=== PATIENT | male | born 1945 | race Caucasian/White ===

== ENCOUNTER 2017-08-25 07:22 | Day surgery (SDC) | payer OTHER ==
[~2017-08-25] VITALS: Ht 172.7 cm; Wt 119.8 kg
[~2017-08-25 07:22] MED LIST: ALEVE220 MG PO; BACL20 PO; CO Q10100 MG PO; Curcumin1 GM PO; DOXA4 PO; Excedrin Extra1 EACH PO; LUTEIN40 MG PO; MELA3 PO
== END 2017-08-25 12:30 | disposition home or self-care (01) ==
LOC: ORSCMMR 07:22 → ORD 08:45 → ORSCMMR 12:30
PROVIDERS: Surgery
PROC: 0JB50ZX Excision of Left Neck Subcutaneous Tissue and Fascia, Open Approach, Diagnostic (ICD-10-PCS; principal; 2017-08-25 08:45)
DX: L72.3 Sebaceous cyst (principal); E11.9 Type 2 diabetes mellitus without complications; J44.9 Chronic obstructive pulmonary disease, unspecified; F17.210 Nicotine dependence, cigarettes, uncomplicated; E66.01 Morbid (severe) obesity due to excess calories; Z68.41 Body mass index [BMI] 40.0-44.9, adult; Z79.899 Other long term (current) drug therapy
CPT/HCPCS: 82947; 88304; J0690; J2250; J3010; J7120

== ENCOUNTER 2018-04-14 10:43 | Inpatient (IN) | payer OTHER ==
[~2018-04-14 10:43] MED LIST changes: +ACET325 PO; +ATOR20 PO; +Coq-10100 MG PO; +ERGO400 PO; +GARCINIA CAMBO1 EACH PO; +IBUP800 PO; +NAPR220 PO; +VARE1 PO
--- NOTE | 2018-04-18 06:47 | NUR ---
History, Chart, Medications and Allergies reviewed before start of procedure. Patient confirms NPO status and agrees with scheduled surgery. Patient reports completing Chlorhexadine shower X4 prior to admission to hospital.
[2018-04-18] MEDS ORDERED: MUPI1NAS (06:51)
--- NOTE | 2018-04-18 07:28 | NUR ---
PATIENT DECLINES WARMING GOWN/BLANKET.
--- NOTE | 2018-04-18 11:34 | NUR ---
FENTANYL 100MCG NOT CROSSING OVER TO EMAR SEE PAPER MAR
--- NOTE | 2018-04-18 16:39 | NUR ---
04/18/18 1639 Natalia Coronado VERIFICATIONS: EDIT CHART.
--- NOTE | 2018-04-18 17:31 | NUR ---
PT HAS BEEN STABLE POST. PT HAS BEEN UP TO WALK THE HALLWAYS WITH THERAPY AND SIT IN CHAIR. PT 1 ASSIST OOB AND TO BATHROOM. PAIN CONTROLLED WITH SCHEDULED AND PRN MEDS. CONT IV FLUIDS ORDERED, MAY SL WHEN LUCAS PO. PT WILL HAVE REG DIET FOR DINNER. PT VOIDING USING THE URINAL. PT DRESSING CDI. PAS, TEDS AND POLAR PACK IN PLACE. CIRC AND SENSATION WNL. HOME CPAP ORDERED AND PT PLACED ON CONT BIOX PER PROTOCOL. PT USES CALL LIGHT APPROPRIATELY TOLERATED.
[2018-04-19 06:04] LABS: BASOPHILS ABSOLUTE AUTO 0.03 K/mm3 (0.00-0.23); BASOPHILS PERCENT AUTO 0 % (0-2); EOSINOPHILS PERCENT AUTO 0 % (0-6); Hemoglobin 11.2 g/dL (13.5-17.5); IMMATURE GRAN ABSOLUTE AUTO 0.11 K/mm3 (0.00-0.10); IMMATURE GRAN PERCENT AUTO 1 % (0-1); LYMPHOCYTES ABSOLUTE AUTO 1.41 K/mm3 (0.84-5.20); LYMPHOCYTES PERCENT AUTO 10 % (21-46); MONOCYTES ABSOLUTE AUTO 1.15 K/mm3 (0.16-1.47); MONOCYTES PERCENT AUTO 8 % (4-13); Mean Corpuscular HGB 30.5 pg (26.0-34.0); Mean Corpuscular HGB Conc 32.9 g/dL (31.5-36.5); Mean Corpuscular Volume 93 fL (80-100); Mean Platelet Volume 9.8 fL (9.1-12.4); NEUTROPHILS ABSOLUTE AUTO 12.03 K/mm3 (1.96-9.15); NEUTROPHILS PERCENT AUTO 82 % (41-73); Platelet Count 172 K/mm3 (150-400); RDW Coefficient Variation 13.8 % (11.7-14.2); RDW Standard Deviation 46.8 fL (35.1-46.3); Red Blood Cell Count 3.67 M/mm3 (4.30-5.90); White Blood Cell Count 14.73 K/mm3 (4.00-11.30)
[2018-04-19 06:16] LABS: Anion Gap 8 mmol/L (6-16); Blood Urea Nitrogen 17 mg/dL (8-24); Bun/Creatinine Ratio 19.7 (12.0-20.0); CO2, Blood 26 mmol/L (21-32); Calcium, Blood 8.1 mg/dL (8.5-10.1); Chloride, Blood 103 mmol/L (98-108); Creatinine, Blood 0.86 mg/dL (0.60-1.20); Glomerular Filtration Rate >60 (60-); Glucose, Blood 137 mg/dL (70-99); Potassium, Blood 4.1 mmol/L (3.5-5.5); Sodium, Blood 137 mmol/L (136-145)
--- NOTE | 2018-04-19 06:36 | NUR ---
SUMMARY POD#1 RIGHT KEE NO ACUTE CHANGES FROM ASSESSMENT. TOLERATING PO INTAKE. PAIN MANAGED WITH SCHEDULED TYLENOL/TORADOL. 1 ASSIST USING FWW/GAIT BELT. VOIDING WNL. CALL LIGHT IN REACH
--- NOTE | 2018-04-19 09:41 | NUR ---
hard rx for percocet and aspiring given to patients
[2018-04-19] MEDS ORDERED: ASPI325EC PO (11:38)
[2018-04-19] MEDS ORDERED: Percocet 5-3251 EACH PO (11:41)
--- NOTE | 2018-04-19 12:11 | NUR ---
DISCHARGE PT PROVIDED WITH WRITTEN AND VERBAL DISCHARGE INSTRUCTIONS, PRESCRIPTIONS, AND DRESSINGS. PT AND SPOUSE REPORTED UNDERSTANDING INSTRUCTIONS AFTER QUESTIONS WERE ANSWERED. VSS. WILL MONITOR UNTIL REPORT TO ONCOMING RN.
== END 2018-04-19 12:08 | disposition home or self-care (01) | DRG 470 ==
LOC: SURS 04-18 06:04 → PRE IP 04-18 07:30 → SURS 04-18 11:56
PROVIDERS: ADMIT Orthopaedic Surgery
PROC: 0SR903A Replacement of Right Hip Joint with Ceramic Synthetic Substitute, Uncemented, Open Approach (ICD-10-PCS; principal; 2018-04-18 07:30)
DX: M16.11 Unilateral primary osteoarthritis, right hip (principal); Z68.41 Body mass index [BMI] 40.0-44.9, adult; E11.9 Type 2 diabetes mellitus without complications; J44.9 Chronic obstructive pulmonary disease, unspecified; G47.33 Obstructive sleep apnea (adult) (pediatric); I10 Essential (primary) hypertension; E66.9 Obesity, unspecified; Z89.022 Acquired absence of left finger(s); Z91.040 Latex allergy status; Z88.8 Allergy status to other drugs, medicaments and biological substances; Z87.891 Personal history of nicotine dependence
CPT/HCPCS: 36415; 72170; 80048; 82947; 85025; 86850; 86900; 86901; 88300; 97110; 97116; 97162; 97530; C1776; J0171; J0690; J0735; J1100; J1170; J1885; J2250; J2405; J2795; J3010; J7120

== ENCOUNTER 2019-02-22 09:19 | Day surgery (SDC) | payer OTHER ==
[~2019-02-22] VITALS: Ht 172.7 cm; Wt 121.8 kg
[~2019-02-22 09:19] MED LIST changes: +ASPI325EC PO; +ATORVASTATIN CA20 MG PO; +Flonase 0.05% N16 GM; +MUPI1NAS; +PROBIOTIC1 EAC1; +Percocet 5-3251 EACH PO; +UBID100 PO; +Vitamin D2000 UNIT
--- NOTE | 2019-02-22 10:28 | NUR ---
02/22/19 1028 Kecia Manuel PT. C/O MULTANI. PT. TOOK BACLOFEN & ALEVE THIS AM AT 0600. LIGHTS TURNED OFF IN PT.'S ROOM R/T HIS MULTANI. CALL LIGHT IS WITHIN REACH.
--- NOTE | 2019-02-22 12:31 | NUR ---
02/22/19 1231 Kecia Manuel 2ML NACL FOR POLYP REMOVAL. THEN USED INDIGO &NACL 18ML FOR OTHER POLYP REMOVAL.
--- NOTE | 2019-02-22 13:00 | NUR ---
02/22/19 1300 Susy Palafox PT VOIDED 200CC'S CLEAR YELLOW URINE IN URINAL AT END OF PROCEDURE. UP TO BATHROOM IN RECOVERY TO VOID AGAIN IN TOILET.
== END 2019-02-22 13:00 | disposition home or self-care (01) ==
LOC: ORSCSDS 09:19
DX: Z12.11 Encounter for screening for malignant neoplasm of colon (principal); Z86.010 Personal history of colon polyps; D12.0 Benign neoplasm of cecum; D12.2 Benign neoplasm of ascending colon; D12.3 Benign neoplasm of transverse colon; D12.5 Benign neoplasm of sigmoid colon; K57.30 Diverticulosis of large intestine without perforation or abscess without bleeding; K64.8 Other hemorrhoids; E11.9 Type 2 diabetes mellitus without complications; J44.9 Chronic obstructive pulmonary disease, unspecified; G47.33 Obstructive sleep apnea (adult) (pediatric); E66.01 Morbid (severe) obesity due to excess calories; Z68.41 Body mass index [BMI] 40.0-44.9, adult; Z79.899 Other long term (current) drug therapy
CPT/HCPCS: 82947; 88305; J0360; J2704; J7120

== ENCOUNTER 2019-04-08 18:43 | Inpatient (IN) | payer MEDICARE, OTHER ==
[~2019-04-08] VITALS: Ht 185.4 cm; Wt 123.4 kg
[~2019-04-08 18:43] MED LIST changes: -ATORVASTATIN CA20 MG PO; -Flonase 0.05% N16 GM
[2019-04-08 19:02] LABS: BASOPHILS ABSOLUTE AUTO 0.03 K/mm3 (0.00-0.23); BASOPHILS PERCENT AUTO 0 % (0-2); EOSINOPHILS PERCENT AUTO 3 % (0-6); Hematocrit 45.2 % (37.0-53.0); Hemoglobin 14.7 g/dL (13.5-17.5); IMMATURE GRAN ABSOLUTE AUTO 0.02 K/mm3 (0.00-0.10); IMMATURE GRAN PERCENT AUTO 0 % (0-1); LYMPHOCYTES ABSOLUTE AUTO 1.59 K/mm3 (0.84-5.20); LYMPHOCYTES PERCENT AUTO 22 % (21-46); MONOCYTES ABSOLUTE AUTO 0.97 K/mm3 (0.16-1.47); MONOCYTES PERCENT AUTO 14 % (4-13); Mean Corpuscular HGB 29.9 pg (26.0-34.0); Mean Corpuscular HGB Conc 32.5 g/dL (31.5-36.5); Mean Corpuscular Volume 92 fL (80-100); Mean Platelet Volume 9.8 fL (9.1-12.4); NEUTROPHILS ABSOLUTE AUTO 4.36 K/mm3 (1.96-9.15); NEUTROPHILS PERCENT AUTO 61 % (41-73); Platelet Count 192 K/mm3 (150-400); RDW Coefficient Variation 13.2 % (11.7-14.2); RDW Standard Deviation 45.1 fL (35.1-46.3); Red Blood Cell Count 4.92 M/mm3 (4.30-5.90); White Blood Cell Count 7.17 K/mm3 (4.00-11.30)
[2019-04-08 19:22] LABS: Alanine Aminotransfer (ALT/SGP 26 U/L (12-78); Albumin/Globulin Ratio 1.2 (0.8-1.8); Alk Phos 102 U/L (50-136); Anion Gap 6 mmol/L (6-16); Aspartate Aminotrans (AST/SGOT 21 U/L (12-37); Bilirubin, Total 0.3 mg/dL (0.1-1.0); Blood Urea Nitrogen 16 mg/dL (8-24); Bun/Creatinine Ratio 17.4 (12.0-20.0); CO2, Blood 26 mmol/L (21-32); Calcium, Blood 8.6 mg/dL (8.5-10.1); Chloride, Blood 107 mmol/L (98-108); Creatinine, Blood 0.92 mg/dL (0.60-1.20); Globulin, Blood 3.4 g/dL (2.2-4.0); Glomerular Filtration Rate >60 (60-); Glucose, Blood 144 mg/dL (70-99); Potassium, Blood 3.7 mmol/L (3.5-5.5); Sodium, Blood 139 mmol/L (136-145); Total Protein, Blood 7.4 g/dL (6.4-8.2); Troponin I 0.026 ng/mL (0.000-0.040)
[2019-04-08] MEDS ORDERED: BACL20 PO (20:09)
[2019-04-08] MEDS ORDERED: Flonase 0.05% N16 GM (20:09)
[2019-04-08] MEDS ORDERED: ALEVE220 MG PO (20:09)
[2019-04-08] MEDS ORDERED: ATORVASTATIN CA20 MG PO (20:10)
[2019-04-08] MEDS ORDERED: MED FOR PROSTATE PO (20:12)
[2019-04-09 03:36] LABS: BASOPHILS ABSOLUTE AUTO 0.04 K/mm3 (0.00-0.23); BASOPHILS PERCENT AUTO 1 % (0-2); EOSINOPHILS ABSOLUTE AUTO 0.16 K/mm3 (0.00-0.68); EOSINOPHILS PERCENT AUTO 2 % (0-6); Hematocrit 42.8 % (37.0-53.0); Hemoglobin 13.5 g/dL (13.5-17.5); IMMATURE GRAN ABSOLUTE AUTO 0.02 K/mm3 (0.00-0.10); IMMATURE GRAN PERCENT AUTO 0 % (0-1); LYMPHOCYTES ABSOLUTE AUTO 1.73 K/mm3 (0.84-5.20); LYMPHOCYTES PERCENT AUTO 24 % (21-46); MONOCYTES ABSOLUTE AUTO 0.94 K/mm3 (0.16-1.47); MONOCYTES PERCENT AUTO 13 % (4-13); Mean Corpuscular HGB 29.1 pg (26.0-34.0); Mean Corpuscular HGB Conc 31.5 g/dL (31.5-36.5); Mean Corpuscular Volume 92 fL (80-100); NEUTROPHILS ABSOLUTE AUTO 4.44 K/mm3 (1.96-9.15); NEUTROPHILS PERCENT AUTO 61 % (41-73); Platelet Count 190 K/mm3 (150-400); RDW Coefficient Variation 13.5 % (11.7-14.2); RDW Standard Deviation 45.8 fL (35.1-46.3); Red Blood Cell Count 4.64 M/mm3 (4.30-5.90); White Blood Cell Count 7.33 K/mm3 (4.00-11.30)
[2019-04-09 03:57] LABS: Anion Gap 5 mmol/L (6-16); Blood Urea Nitrogen 15 mg/dL (8-24); Bun/Creatinine Ratio 17.8 (12.0-20.0); CHOL/HDL RATIO 3.3; CO2, Blood 27 mmol/L (21-32); Calcium, Blood 8.6 mg/dL (8.5-10.1); Chloride, Blood 109 mmol/L (98-108); Cholesterol 124 mg/dL (50-200); Creatinine, Blood 0.84 mg/dL (0.60-1.20); Glomerular Filtration Rate >60 (60-); Glucose, Blood 115 mg/dL (70-99); HDL Cholesterol 38 mg/dL (>39); LDL/HDL RATIO 1.6; Low Density Lipoprotein Chol 61 mg/dL (0-110); Potassium, Blood 3.8 mmol/L (3.5-5.5); Sodium, Blood 141 mmol/L (136-145); Triglycerides 123 mg/dL (30-160); Very Low Density Lipoprot Chol 24 mg/dL (6-32)
--- NOTE | 2019-04-09 07:00 | NUR ---
ASSUMED CARE OF PT- BEDSIDE REPORT COMPLETED WITH NIGHT RN TARA. PT HEPARIN DRIP CURRENTLY RUNNING RATE VERIFIED WITH PHARMACY AT SHIFT CHANGE. PT ALERT AND ORIENTED. PT CURRENTLY WEARING THE C-PAP PROVIDED BY THE HOSPITAL BUT PT IS ALLERGIC TO PETROLATUM AND LATEX. SO HIS SPOUSE IS BRINGING HIS CPAP IN FOR HIM WITH A SPECIAL MASK. PT MOVES INDEPENDENT IN THE ROOM. IN REPORT PATIENT SERVICE REPRESENTATIVE ON THE CASE SEEMED TO BE UNCLEAR. PT HAS A STRESS TEST ORDERED FOR TODAY, WILL CALL TO COMNFIRM THAT DR STILL WANTS THIS. TROPONIN WAS CRITICAL AT GREATER THAN 1.5. NIGHT DR AWARE, NO NEW ORDERS PER NIGHT RN AT THIS TIME. WILL FOLLOW UP WITH DAY SHIFT HOSPITALIST.
--- NOTE | 2019-04-09 08:31 | NUR ---
HEALTH BENEFITS SPECIALIST SUMMARY patient alert oriented X4, No complaints of discomfort overnight. nebulizer tx have made patient "feel much much better" Patient stated he thought he was going to the night before. lung sounds have exp. wheezes throughout, but audible air excursion in all lobes. INR this morning was 5.3. Hospitalist informed and Pharmacy to hold coumadin today. Pharmacist informed of INR. They are managing Coumadin dosage.
--- NOTE | 2019-04-09 09:33 | NUR ---
CALLED CARDIOLOGY CONSULT TO DR ROSA. PER THE DAYS HAVE SWITCHED AND DR ROY IS NOW THE AUTOMOTIVE DESIGN DRAFTER GRADUATE ASSISTANT ATHLETIC TRAINER FOR THE DAY. PAGED DR ROY WAITING FOR A CALL BACK.
--- NOTE | 2019-04-09 15:22 | NUR ---
PT ARRIVED TO ROOM PCU 11. FAMILY PRESENT. PT UP TO BR UPON ARRIVAL. UNMEASURED VOID
--- NOTE | 2019-04-09 16:00 | NUR ---
FAMILY LEFT TO LET PT REST. EXTRA PILLOWS PROVIDED. POSITIONED ONTO LEFT SIDE. LIGHTS OFF ADDITIONAL VISITORS ARRIVED AND NOW LEAVING. ARM SLING IN PLACE, CONT BIOX ON, CALL LIGHT IN REACH.
--- NOTE | 2019-04-09 18:02 | NUR ---
SHIFT SUMMARY PT CURRENTLY LAYING DOWN WITH CPAP IN PLACE AND LIGHTS OFF. FINISHED ALL OF DINNER WISHING TO GET SOME REST BEFORE SHIFT CHANGE AND FOR WHEN SHE COMES BACK TO VISIT. PT HAS HAD NO SIG CHANGES SINCE ARRIVAL FROM PICKLING OPERATOR. HR IN 40'S-50'S WHEN ASLEEP, LOW 60'S WHEN AWAKE. DISCUSSED WITH CLINICAL PSYCHOLOGIST LICENSED, MONITOR SHOWS NO CHANGES WILL CONTINUE TO WATCH. CALL LIGHT AND PHONE WITHIN REACH. WILL REPORT TO POULTRY EVISCERATOR RN.
--- NOTE | 2019-04-10 06:17 | NUR ---
SHIFT SUMMARY PT SLEEPING IN ROOM COMFORTABLY AT THIS TIME. NO ACUTE CHANGES T/O NIGHT. PT SLEPT WELL T/O NIGHT. STARTED DEFLATING TR BAND TO R WRIST AT 191, SITE WAS WNL NO OOZING NOTED NO HEMATOMA. SITE WAS FULLY DEFLATED AT REMOVED BY 0100. ARM BOARD IN PLACE AND TEGADERM OVER SITE. PT DENIED CP OR SOB T/O NIGHT. DENIED OTHER NEEDS. CALL LIGHT IS WITHIN REACH.
--- NOTE | 2019-04-10 07:48 | NUR ---
REPORT REC'D FROM ERICK DIAS. PT LYING IN BED, LIGHTS OFF, CPAP ON, CONT BIOX IN PLACE. VSS. DENIES NEEDS AT THIS TIME. CALL LIGHT IN REACH. ASSESSMENT NOTED.
[2019-04-10] MEDS ORDERED: Cardura1 MG PO (12:15)
[2019-04-10] MEDS ORDERED: Aspir 8181 MG PO (14:47)
[2019-04-10] MEDS ORDERED: CLOP75 PO (14:49)
[2019-04-10] MEDS ORDERED: METO25 PO (15:00)
[2019-04-10] MEDS ORDERED: Nicoderm Cq1 EAC1 TOP (15:04)
[2019-04-10] MEDS ORDERED: NITR.4SL SL (15:05)
--- NOTE | 2019-04-10 15:10 | NUR ---
PT DC'D WITH WRITTEN AND VERBAL INSTRUCTIONS. ALL QUESTIONS ANSERED. IV DC'D INTACT. WRIST BOARD IN PLACE, RADIAL SITE DRSG INTACT. PT SSCORTED TO PV WITH SPOUSE BY SOAKER SODA WORKER. VSS. ROCHA.
== END 2019-04-10 15:31 | disposition home or self-care (01) | DRG 247 ==
LOC: ER 18:43 → MEDS 18:44 → PCU 04-09 14:59
PROVIDERS: Nurse Practitioner Acute Care; Physician Assistant; ADMIT Internal Medicine
PROC: 027034Z Dilation of Coronary Artery, One Artery with Drug-eluting Intraluminal Device, Percutaneous Approach (ICD-10-PCS; principal; 2019-04-09)
PROC: 4A023N7 Measurement of Cardiac Sampling and Pressure, Left Heart, Percutaneous Approach (ICD-10-PCS; 2019-04-09)
PROC: B211YZZ Fluoroscopy of Multiple Coronary Arteries using Other Contrast (ICD-10-PCS; 2019-04-09)
DX: I21.4 Non-ST elevation (NSTEMI) myocardial infarction (principal); E23.0 Hypopituitarism; I16.0 Hypertensive urgency; J44.9 Chronic obstructive pulmonary disease, unspecified; F17.210 Nicotine dependence, cigarettes, uncomplicated; E78.5 Hyperlipidemia, unspecified; E66.01 Morbid (severe) obesity due to excess calories; N40.0 Benign prostatic hyperplasia without lower urinary tract symptoms; M19.91 Primary osteoarthritis, unspecified site; B19.20 Unspecified viral hepatitis C without hepatic coma; Z68.31 Body mass index [BMI] 31.0-31.9, adult; E11.9 Type 2 diabetes mellitus without complications
CPT/HCPCS: 36415; 71045; 76937; 80048; 80053; 80061; 82947; 83880; 84484; 85025; 85347; 93005; 93010; 93306; 93454; 94660; 94762; 99152; 99153; 99285-25; A9270; C1725; C1769; C1874; C1887; C1894; C9600; J1644; J2250; J3010; J7030; Q9967

== ENCOUNTER 2020-04-15 11:41 | Day surgery (SDC) | payer OTHER ==
[~2020-04-15] VITALS: Ht 172.7 cm; Wt 121.3 kg
[~2020-04-15 11:41] MED LIST changes: +ATORVASTATIN CA20 MG PO; +Aspir 8181 MG PO; +CLOP75 PO; +Cardura1 MG PO; +Flonase 0.05% N16 GM; +MED FOR PROSTATE PO; +METO25 PO; +NITR.4SL SL; +Nicoderm Cq1 EAC1 TOP
[2020-04-15] MEDS ORDERED: BACL10 (12:24)
[2020-04-15] MEDS ORDERED: Norco 5-325 Ta1 EACH (12:24)
[2020-04-15] MEDS ORDERED: ATOR20 (12:25)
[2020-04-15] MEDS ORDERED: BETA.05TCA (12:25)
[2020-04-15] MEDS ORDERED: GABA100 (12:25)
[2020-04-15] MEDS ORDERED: UBID10 (12:25)
[2020-04-15] MEDS ORDERED: DOXA4 (12:26)
[2020-04-15] MEDS ORDERED: Lisinopril2.5 MG (12:26)
[2020-04-15] MEDS ORDERED: CLOP75 (12:26)
[2020-04-15] MEDS ORDERED: CODACE30 (12:27)
== END 2020-04-15 14:20 | disposition home or self-care (01) ==
LOC: ORSCSDS 11:41
PROVIDERS: Student in an Organized Health Care Education/Training Program
PROC: 0DBK8ZX Excision of Ascending Colon, Via Natural or Artificial Opening Endoscopic, Diagnostic (ICD-10-PCS; principal; 2020-04-15 13:00)
PROC: 0DBE8ZX Excision of Large Intestine, Via Natural or Artificial Opening Endoscopic, Diagnostic (ICD-10-PCS; principal; 2020-04-15 13:00)
DX: Z12.11 Encounter for screening for malignant neoplasm of colon (principal); D12.2 Benign neoplasm of ascending colon; K52.832 Lymphocytic colitis; K64.4 Residual hemorrhoidal skin tags; K64.8 Other hemorrhoids; K57.30 Diverticulosis of large intestine without perforation or abscess without bleeding; Z86.010 Personal history of colon polyps; E11.9 Type 2 diabetes mellitus without complications; J44.9 Chronic obstructive pulmonary disease, unspecified; I25.10 Atherosclerotic heart disease of native coronary artery without angina pectoris; I10 Essential (primary) hypertension; G47.33 Obstructive sleep apnea (adult) (pediatric); E66.01 Morbid (severe) obesity due to excess calories; Z68.41 Body mass index [BMI] 40.0-44.9, adult; Z79.01 Long term (current) use of anticoagulants; Z79.899 Other long term (current) drug therapy; F17.210 Nicotine dependence, cigarettes, uncomplicated
CPT/HCPCS: 82947; 88305; J2704

== ENCOUNTER 2020-10-27 17:11 | Emergency (ER) | payer OTHER ==
[~2020-10-27 17:11] MED LIST changes: +ATOR20; +BACL10; +BETA.05TCA; +CLOP75; +CODACE30; +DOXA4; +GABA100; +Lisinopril2.5 MG; +Norco 5-325 Ta1 EACH; +UBID10
== END 2020-10-27 17:40 | disposition left against medical advice (07) ==
LOC: ER 17:11
DX: Z53.21 Procedure and treatment not carried out due to patient leaving prior to being seen by health care provider (principal)

== ENCOUNTER 2021-03-12 19:33 | Emergency (ER) | payer OTHER ==
[~2021-03-12] VITALS: Ht 172.7 cm; Wt 119.3 kg
[2021-03-12] MEDS ORDERED: CEPH500 PO (19:58)
== END 2021-03-12 20:04 | disposition home or self-care (01) ==
LOC: ER 19:33
DX: L03.115 Cellulitis of right lower limb (principal); J44.9 Chronic obstructive pulmonary disease, unspecified; E78.5 Hyperlipidemia, unspecified; E11.9 Type 2 diabetes mellitus without complications; G43.909 Migraine, unspecified, not intractable, without status migrainosus; F17.210 Nicotine dependence, cigarettes, uncomplicated; Z91.040 Latex allergy status; Z91.048 Other nonmedicinal substance allergy status; Z79.899 Other long term (current) drug therapy
CPT/HCPCS: 99283; A9270

== ENCOUNTER → 2023-04-20 | Outpatient (CLI) | payer OTHER ==
[~2023-04-20] MED LIST changes: +CEPH500 PO
[2023-04-21 11:13] LABS: U Amphetamine Screen Not Detected; U Barbituate Screen Not Detected; U Benzodiazapine Screen Not Detected; U Buprenorphine Screen Not Detected; U Cannabinoids Screen Not Detected; U Cocaine Screen Not Detected; U Methadone Screen Not Detected; U Methamphetamine Screen Not Detected; U Opiates Screen DETECTED; U Oxycodone Screen Not Detected; U Phencyclidine Screen Not Detected
== END | disposition home or self-care (01) ==
LOC: LAB SHORT 17:39 → LAB 17:39
PROVIDERS: Physician Assistant
DX: M54.9 Dorsalgia, unspecified (principal); G89.4 Chronic pain syndrome; Z79.899 Other long term (current) drug therapy

== ENCOUNTER 2023-05-23 08:19 | Day surgery (SDC) | payer OTHER ==
[~2023-05-23] VITALS: Ht 167.6 cm; Wt 115.0 kg
--- NOTE | 2023-05-23 06:28 | NUR ---
05/23/23 [address] NEUMANN, SEE ANESTHESIA RECORDS.
[~2023-05-23 08:19] MED LIST changes: +ALBU90OI INH; +ASPI81CH PO; +CHOLESTYRAMI239.4 G1 PO; +Lactated Ringer's 1,000 ML IV SCH; -Lisinopril2.5 MG; +Lisinopril2.5 MG PO; -Norco 5-325 Ta1 EACH; +Norco 5-325 Ta1 EACH PO; +Norco 7.5-3251 EACH PO; +SPIR25 PO
[2023-05-23 09:16] VITALS: BP 139/68
--- NOTE | 2023-05-23 09:37 | NUR ---
History, Chart, Medications and Allergies reviewed before start of procedure. Pre-Op teaching done. Pt verbalizes understanding. Patient confirms NPO status and agrees with scheduled surgery. Patient states colon prep results clear. Patient States Post-Procedure ride home has been arranged.
[2023-05-23] MEDS ORDERED: propofoL 60 ML IV ONE (09:49)
[2023-05-23] MEDS ORDERED: Ondansetron HCl 2 MG / ML 2ML Vial ONE (10:08)
[2023-05-23 10:49] VITALS: BP 118/63
--- NOTE | 2023-05-23 10:54 | NUR ---
REPORT RECEIVED FROM DB CARSON RN. VSS. PT ON RA. PT ABLE TO REPOSITION SELF IN BED. PT REQUESTING PO FLUIDS AND TOLERATING THEM WELL. PT DENIES PAIN, NAUSEA OR OTHER DISCOMFORTS.
[2023-05-23 11:00] VITALS: BP 128/63
== END 2023-05-23 11:16 | disposition home or self-care (01) ==
LOC: ORSCMMR 08:19 → ORD 09:45 → ORSCMMR 09:45
PROVIDERS: Internal Medicine Gastroenterology
PROC: 0DBL8ZX Excision of Transverse Colon, Via Natural or Artificial Opening Endoscopic, Diagnostic (ICD-10-PCS; principal; 2023-05-23 09:45)
PROC: 0DBN8ZX Excision of Sigmoid Colon, Via Natural or Artificial Opening Endoscopic, Diagnostic (ICD-10-PCS; principal; 2023-05-23 09:45)
PROC: 0DBK8ZX Excision of Ascending Colon, Via Natural or Artificial Opening Endoscopic, Diagnostic (ICD-10-PCS; principal; 2023-05-23 09:45)
PROC: 0DBH8ZX Excision of Cecum, Via Natural or Artificial Opening Endoscopic, Diagnostic (ICD-10-PCS; principal; 2023-05-23 09:45)
DX: K52.9 Noninfective gastroenteritis and colitis, unspecified (principal); Z86.010 Personal history of colon polyps; K63.5 Polyp of colon; G47.30 Sleep apnea, unspecified; J44.9 Chronic obstructive pulmonary disease, unspecified; I25.10 Atherosclerotic heart disease of native coronary artery without angina pectoris; E66.01 Morbid (severe) obesity due to excess calories; Z68.41 Body mass index [BMI] 40.0-44.9, adult; I25.2 Old myocardial infarction; F17.210 Nicotine dependence, cigarettes, uncomplicated; Z79.82 Long term (current) use of aspirin; Z79.899 Other long term (current) drug therapy
CPT/HCPCS: 82947; 88305; J2405; J2704; J7120